=== PATIENT | male | born 1945 | race Caucasian/White ===

== ENCOUNTER → 2017-08-09 | Outpatient (CLI) | payer OTHER, BC | LOC: BMCIMAGING 10:02 | PROVIDERS: ATTEND Internal Medicine Cardiovascular Disease | DX: Z13.83 Encounter for screening for respiratory disorder NEC (principal) ==

== ENCOUNTER → 2018-01-08 | Outpatient (CLI) | payer OTHER, BC ==
[~2018-01-08] MED LIST: IOPAMIDOL (ISOVUE 370) 100 ML BTL IV ONE
== END ==
LOC: FIMAGING 10:56
PROVIDERS: ATTEND Internal Medicine Cardiovascular Disease
DX: I25.10 Atherosclerotic heart disease of native coronary artery without angina pectoris (principal); J98.4 Other disorders of lung; Z85.850 Personal history of malignant neoplasm of thyroid
CPT/HCPCS: 75572; Q9967

== ENCOUNTER 2018-01-15 06:51 | Day surgery (SDC) | payer OTHER, BC ==
[2018-01-15] MEDS ORDERED: NS 1,000 ML IV ONE (06:54)
--- NOTE | 2018-01-15 07:14 | CPEKG ---
Heart Rate: 67 RR Interval: 896 P-R Interval: 168 QRSD Interval: 100 QT Interval: 484 QTC Interval: 511 P [place]: 34 QRS [place]: -13 T Wave [place]: 14 EKG Severity - ABNORMAL ECG - EKG Impression: SINUS RHYTHM WITH PAC EKG Impression: BORDERLINE PROLONGED QT INTERVAL Electronically Signed By: Ronald Arzola 15-Jan-2018 08:36:43
[2018-01-15 07:36] LABS: PLATELET COUNT 138 10^3/uL (150-400)
[2018-01-15] MEDS ORDERED: methylPREDNISolone SOD SUCC 125 MG/2 ML VIAL IVP ONE (07:43)
[2018-01-15] MEDS ORDERED: FAMOTIDINE 20 MG/NACL 50 ML IV ONE (07:43)
[2018-01-15 07:44] LABS: INR 1.08 (0.83-1.16); PROTIME(PATIENT) 14.2 SEC (12.0-15.0)
[2018-01-15] MEDS ORDERED: HEPARIN/DEXTROSE 25,000 UNIT/500 ML BAG ONE (08:05)
[2018-01-15] MEDS ORDERED: IOPAMIDOL (ISOVUE-300) 100 ML BTL ONE (08:05)
[2018-01-15] MEDS ORDERED: LIDOCAINE 1% 300 MG/30 ML SDV ONE (08:05)
[2018-01-15] MEDS ORDERED: HEPARIN 10,000 UNIT/10 ML MDV (1,000 UNIT/ML) ONE (08:05)
[2018-01-15] MEDS ORDERED: BUPIVACAINE 0.5% 10 ML SDV ONE (08:06)
--- NOTE | 2018-01-15 08:15 | PDANEPAE ---
ANE History of Present Illness Patient presents for EP ablation ANE Past Medical History - Cardiovascular History Hx Hypertension: Yes Hx Arrhythmias: Yes Hx Coronary Artery / Peripheral Vascular Disease: Yes - Pulmonary History Hx Sleep Apnea: Yes ANE Review of Systems Review of Systems: ANE Patient History - Allergies Allergies/Adverse Reactions: Iodinated Contrast- Oral and IV Dye Allergy (Severe, Verified 01/15/18 07:46) Other-Enter Comments lisinopril Allergy (Verified 10/04/15 08:47) - Home Medications Home medications: home medication list seen and reviewed Home Medications: Apixaban [Eliquis] 5 mg PO BID 01/10/18 [Last Taken 01/12/18] Atorvastatin Calcium [Lipitor 40 mg (*)] 40 mg PO DAILY18 01/10/18 [Last Taken 01/14/18] Budesonide/Formoterol 160/4.5 [Symbicort 160-4.5 Mcg Inh (*)] 2 puffs IH BID 06/22 [Last Taken 01/14/18] Carisoprodol [Soma (*)] 700 mg PO HS 01/10/18 [Last Taken 01/14/18] Cetirizine [ZyrTEC 10 mg (*)] 10 mg PO DAILY 01/10/18 [Last Taken 01/14/18] Citalopram [CeleXA] 20 mg PO DAILY 01/10/18 [Last Taken 01/14/18] Fluticasone Nasal [Flonase Nasal [place] (RX)] 1 sprays NASAL BID 01/10/18 [Last Taken 01/14/18] Furosemide [Lasix 20 MG (*)] 20 mg PO DAILY 01/10/18 [Last Taken 01/14/18] Herbals/Supplements -Info Only 1 ea PO DAILY 01/10/18 [Last Taken 01/14/18] Levothyroxine [Synthroid 175 mcg (*)] 175 mcg PO DAILY06 01/10/18 [Last Taken ] Metoprolol Tartrate [Lopressor 100 mg (*)] 150 mg PO BID 01/10/18 [Last Taken ] Omeprazole 20 mg PO HS 01/10/18 [Last Taken 01/14/18] Testosterone IM [Testosterone 100mg/ml IM inj (*)] 175 mg IM Q14D 01/10/18 [ Last Taken 01/10/18] Valsartan/Hydrochlorothiazide [Diovan Hct 320-25 mg Tablet] 1 each PO DAILY 06/22 [Last Taken 01/14/18] amLODIPine BESYLATE [Norvasc 5 mg (*)] 5 mg PO DAILY 01/10/18 [Last Taken ] traZODone [traZODONE 100MG (*)] 200 mg PO HS 01/10/18 [Last Taken 01/14/18] - NPO status NPO Status: no food or drink >8 hours - Smoking Hx Smoking Status: Former smoker ANE Labs/Vital Signs - Labs Result Diagrams: 01/15/18 07:11 01/15/18 07:11 - Vital Signs Height: 175 cm Weight: 104.3 kg ANE Physical Exam - Airway Neck exam: FROM Mallampati Score: Class 1 Mouth exam: normal dental/mouth exam - Pulmonary Pulmonary: no respiratory distress - Cardiovascular Cardiovascular: regular rate and rhythym - ASA Status ASA Status: III ANE Anesthesia Plan Anesthesia Plan: general endotracheal anesthesia (RBA) Specialized Airway: video laryngoscope (RBA discussed)
[2018-01-15] MEDS ORDERED: fentaNYL 100 MCG/2 ML INJ ONE (08:22)
[2018-01-15] MEDS ORDERED: PROPOFOL 200 MG/20 ML VIAL ONE ×2 (08:22→09:06)
[2018-01-15] MEDS ORDERED: DEXAMETHASONE 4 MG/ML VIAL ONE (08:23)
[2018-01-15] MEDS ORDERED: ONDANSETRON 4 MG/2 ML VIAL ONE (08:23)
[2018-01-15] MEDS ORDERED: SUCCINYLCHOLINE CHLORIDE 200 MG/10 ML SYR IVP ONE (08:23)
--- NOTE | 2018-01-15 08:47 | PDGENHP ---
History & Physical Chief Complaint: symptomatic afib History of Present Illness: afib Relevant Physical Exam: s1s2 rrr cta ao3 Cardiorespiratory Assessment: symptomatic afib for cb pvi
[2018-01-15] MEDS ORDERED: SUGAMMADEX SODIUM 200 MG/2 ML VIAL IVP ONE ×2 (09:42)
--- NOTE | 2018-01-15 10:15 | EPPROC ---
Electrophysiology Procedure Note: Patient was intubated for ablation procedure. Post intubation he was hypoxic 89% on 100% FiO2 and fighting the ventilator. ET tube was in good location based on fluoroscopy and bilat breath sounds. He had decrease in SaO2 to 70s. He was paralysed again and SaO2 improved. He was extubated and SaO2 improved to 98%. Clinical picture c.w. mucous plugging. Please see anesthesiologist note for further details. RANI was done but ablation cancelled due to above. Patient Problems: Problems Problem Status Onset Atrial fibrillation Acute
--- NOTE | 2018-01-15 10:15 | POSTANESTH ---
Post Anesthetic Evaluation Cardiovascular Status: Similar to Pre-Op Cond Respiratory Status: Similar to Pre-op Cond. Level of Consciousness/Mental Status: Alert and Oriented Pain Control: Adequate, Prn Tx Ordered Nausea/Vomiting Control: Adequate, Prn Tx Ordered Complications Possibly Related to Anesthesia: Other, See Comments (See attached documentation for description of OR events. Unremarkable recovery after extubation.)
--- NOTE | 2018-01-15 10:27 | SOAPPROG ---
SOAP Progress Note Assessment/Plan: Assessment: The patient was brought to the OR and underwent a standard IV induction with 60mg of Lidocaine, 300mg of propofol and 140mg of succinylcholine. The patient was oral-tracheally intubated using the glidescope and a 7.5mm ETT. There was good visualization of the tube passing through the vocal cords. After intubation +EtCo2, and +alta BS were observed. Tidal volumes were good but airway pressures were in the low 30's. Shortly after induction and intubation the patients O2 Sats dropped to 88% on 100%FiO2 and 7mmHg of PEEP. Due to the low sats which were unexplained, we waited a few minutes before starting the RANI. Prior to starting the RANI O2 saturation had improved to 90%. Shortly after inserting the RANI probe, the patient began to fight the ventilator as it was about this time that the Succinylcholine began to wear off. The desynchrony caused the O2 sats to drop further into the 70's. The patient began showing Bigeminy and PVC's on the monitoring manager. At this point the RANI probe was removed and the patient was paralyzed with 50mg of Rocuronium. After paralysis the O2 saturation began to slowly and steadily climb back into the 80's and leveled out at about 90. The patient was subsequently reversed with 400mg sugammadex and extubated with an oral airway in place. The [id number] improved after extubation to >95%. The procedure was cancelled and the patient was taken to recovery in good condition. Plan: Procedure was cancelled due to unexplained hypoxia after induction and intubation. Differential diagnosis for hypoxia includes right to left intracardiac shunt, mucous plug, pulmonary edema or pulmonary embolism. Query significant pulmonary hypertension. 01/15/18 10:15 01/15/18 10:27 Subjective: This is a description of the events regarding Mr. Arriaga's scheduled EP procedure and RANI. Objective: Laboratory Results 01/15/18 07:11 01/15/18 07:11 PT 14.2 SEC (12.0-15.0) 01/15/18 07:11 INR 1.08 (0.83-1.16) 01/15/18 07:11 ICD10 Worksheet Patient Problems: Problems Problem Status Onset Atrial fibrillation Acute
[2018-01-15] MEDS ORDERED: TESTOSTERONE IM 100 MG/ML SYRINGE IM SCH (10:30)
[2018-01-15] MEDS ORDERED: ATORVASTATIN CALCIUM 40 MG TAB PO SCH (18:00)
[2018-01-15] MEDS ORDERED: FLUTICASONE NASAL 120 SPRAYS/16 GM MDI NS SCH (21:00)
[2018-01-15] MEDS ORDERED: METOPROLOL TARTRATE 100 MG TAB PO SCH (21:00)
[2018-01-15] MEDS ORDERED: APIXABAN 5 MG TAB PO SCH (21:00)
[2018-01-15] MEDS ORDERED: NON-FORMULARY NEW DRUG (Omeprazole [Omeprazole] 20 MG) PO SCH (21:00)
[2018-01-15] MEDS ORDERED: traZODone 100 MG TAB PO SCH (21:00)
[2018-01-15] MEDS ORDERED: BUDESONIDE/FORMOTEROL 160/4.5 60 PUFFS/MDI IH SCH (21:00)
[2018-01-16] MEDS ORDERED: LEVOTHYROXINE 175 MCG TAB PO SCH (06:00)
[2018-01-16] MEDS ORDERED: amLODIPine BESYLATE 5 MG TAB PO SCH (09:00)
[2018-01-16] MEDS ORDERED: FUROSEMIDE 20 MG TAB PO SCH (09:00)
[2018-01-16] MEDS ORDERED: CETIRIZINE 10 MG TAB PO SCH (09:00)
[2018-01-16] MEDS ORDERED: CITALOPRAM 20 MG TAB PO SCH (09:00)
[2018-01-16] MEDS ORDERED: NON-FORMULARY NEW DRUG (Valsartan/Hydrochlorothiazide [Diovan Hct 320-25 Mg Tablet] 1 EACH PO SCH (09:00)
== END 2018-01-15 12:45 | disposition home or self-care (01) ==
LOC: FCATH 06:51
PROVIDERS: ATTEND Internal Medicine Cardiovascular Disease
PROC: B245ZZ4 Ultrasonography of Left Heart, Transesophageal (ICD-10-PCS; principal; 2018-01-15)
DX: I48.91 Unspecified atrial fibrillation (principal); R09.02 Hypoxemia; I10 Essential (primary) hypertension; G47.33 Obstructive sleep apnea (adult) (pediatric); Z79.01 Long term (current) use of anticoagulants; Z53.09 Procedure and treatment not carried out because of other contraindication
CPT/HCPCS: J0330; J1100; J1200; J1644; J2405; J2704; J2930; J3010; Q9967

== ENCOUNTER → 2018-11-07 | Outpatient (CLI) | payer OTHER, BC | LOC: FIMAGING 10:44 | PROVIDERS: ATTEND Internal Medicine Pulmonary Disease | DX: J98.09 Other diseases of bronchus, not elsewhere classified (principal) ==